=== PATIENT | male | born 1980 | race Caucasian/White ===

== ENCOUNTER 2017-03-20 17:08 | Emergency (ER) | payer SELFPAY ==
[2017-03-20] MEDS ORDERED: CYCL10TA PO (19:27)
[2017-03-20] MEDS ORDERED: IBUP-1022 PO (19:27)
== END 2017-03-20 19:42 | disposition home or self-care (01) ==
LOC: M ED 17:08
DX: S46.911A Strain of unspecified muscle, fascia and tendon at shoulder and upper arm level, right arm, initial encounter (principal); X58.XXXA Exposure to other specified factors, initial encounter; Y92.89 Other specified places as the place of occurrence of the external cause; Y93.89 Activity, other specified; Y99.8 Other external cause status; Z91.012 Allergy to eggs

== ENCOUNTER → 2017-07-31 | Outpatient (CLI) | payer SELFPAY | LOC: M OUTALCOH 08:01 | DX: F10.20 Alcohol dependence, uncomplicated (principal) ==

== ENCOUNTER 2017-08-07 10:10 | Outpatient (RCR) | payer SELFPAY | END 2017-08-09 | LOC: M OUTALCOH 10:10 | DX: F10.20 Alcohol dependence, uncomplicated (principal) ==

== ENCOUNTER 2017-08-15 16:00 | Outpatient (RCR) | payer SELFPAY | END 2017-09-09 | LOC: M OUTALCOH 08-22 16:00 | DX: F10.20 Alcohol dependence, uncomplicated (principal) ==

== ENCOUNTER 2017-09-12 16:00 | Outpatient (RCR) | payer SELFPAY | END 2017-10-09 | LOC: M OUTALCOH 09-19 10:45 | DX: F10.20 Alcohol dependence, uncomplicated (principal) ==

== ENCOUNTER 2017-10-11 09:02 | Outpatient (RCR) | payer SELFPAY | END 2017-11-09 | LOC: M OUTALCOH 10-18 15:00 | DX: F10.20 Alcohol dependence, uncomplicated (principal) ==

== ENCOUNTER 2017-11-15 15:17 | Outpatient (RCR) | payer SELFPAY | END 2017-12-09 | LOC: M OUTALCOH 11-28 16:00 | DX: F10.20 Alcohol dependence, uncomplicated (principal) ==

== ENCOUNTER 2017-12-11 14:48 | Outpatient (RCR) | payer SELFPAY | END 2018-01-09 | LOC: M OUTALCOH 01-01 16:00 | DX: F10.20 Alcohol dependence, uncomplicated (principal) ==

== ENCOUNTER 2018-02-19 08:54 | Outpatient (RCR) | payer SELFPAY | END 2018-03-11 | LOC: M OUTALCOH 08:54 | DX: F10.20 Alcohol dependence, uncomplicated (principal) ==

== ENCOUNTER → 2018-03-15 | Outpatient (REF) | payer BC | LOC: M SFHCLERA 09:44 | DX: R10.9 Unspecified abdominal pain (principal) ==

== ENCOUNTER → 2018-05-07 | Outpatient (CLI) | payer BC ==
[2018-05-07 12:44] LABS: HEMATOCRIT 24.1 % (42.0-52.0); MEAN CORPUSCULAR HEMOGLOBIN 15.6 pg (27.0-33.0); MEAN CORPUSCULAR HGB CONC 24.5 g/dl (32.0-36.5); MEAN CORPUSCULAR VOLUME 63.8 fl (80.0-96.0); PLATELET COUNT, AUTOMATED 357 10^3/uL (150-450); RED BLOOD COUNT 3.78 10^6/uL (4.30-6.10); RED CELL DISTRIBUTION WIDTH 22.5 % (11.5-14.5); WHITE BLOOD COUNT 5.3 10^3/uL (4.0-10.0)
[2018-05-07 13:00] LABS: HEMOGLOBIN 5.9 g/dl (13.5-17.5)
[2018-05-07 13:31] LABS: ALBUMIN 3.2 GM/DL (3.2-5.2); ALBUMIN/GLOBULIN RATIO 0.86 (1.00-1.93); ALKALINE PHOSPHATASE 81 U/L (45-117); ALT/SGPT 12 U/L (12-78); ANION GAP 7 MEQ/L (8-16); AST/SGOT 8 U/L (7-37); BILIRUBIN,TOTAL 0.3 MG/DL (0.2-1.0); BLOOD UREA NITROGEN 10 MG/DL (7-18); CARBON DIOXIDE LEVEL 25 MEQ/L (21-32); CHLORIDE LEVEL 107 MEQ/L (98-107); CHOLESTEROL LEVEL 84 MG/DL (<200); CREATININE FOR GFR 0.78 MG/DL (0.70-1.30); FERRITIN 2 NG/ML (26-388); GLOMERULAR FILTRATION RATE > 60.0 (>60); GLUCOSE, FASTING 81 MG/DL (70-100); HDL CHOLESTEROL 28 MG/DL (>40); IRON (FE) 14 UG/DL (65-175); LDL CHOLESTEROL 47 MG/DL (<100); NON-HDL-C 56 MG/DL; PERCENT SATURATION 3.6 % (19.7-50.0); POTASSIUM SERUM 4.7 MEQ/L (3.5-5.1); SODIUM LEVEL 139 MEQ/L (136-145); TOTAL IRON BINDING CAPACITY 392 UG/DL (250-450); TOTAL PROTEIN 6.9 GM/DL (6.4-8.2); TRIGLYCERIDES LEVEL 47 MG/DL (<150)
[2018-05-07 13:48] LABS: ERYTHROCYTE SEDIMENTATION RATE 64 mm/hr (0-15)
[2018-05-07 13:52] LABS: RETIC HEMOGLOBIN EQUIVALENT 14.7 pg (24-36); RETICULOCYTE # 111.2 10^9/L (17-77); RETICULOCYTE % 2.9 % (0.5-1.5)
[2018-05-09 00:50] LABS: ANTINUCLEAR ANTIBODIES DIRECT Negative (Negative); Lyme Disease IgG/IgM Antibodie <0.91 ISR (0.00-0.90); Lyme Disease IgM Ab Quantitati <0.80 index (0.00-0.79)
[2018-05-09 10:59] LABS: VITAMIN B12 LEVEL 363 PG/ML (247-911)
[2018-05-13 14:08] LABS: Methylmalonic Acid 129 nmol/L (0-378)
== END ==
LOC: M WUC 09:11
DX: Z00.00 Encounter for general adult medical examination without abnormal findings (principal); Z13.220 Encounter for screening for lipoid disorders; D64.9 Anemia, unspecified; M25.50 Pain in unspecified joint; M79.10 Myalgia, unspecified site
CPT/HCPCS: 82607

== ENCOUNTER → 2018-05-08 | Outpatient (REF) | payer BC ==
[2018-05-08 11:06] LABS: HEMATOCRIT 24.9 % (42.0-52.0); MEAN CORPUSCULAR HEMOGLOBIN 15.6 pg (27.0-33.0); MEAN CORPUSCULAR HGB CONC 24.5 g/dl (32.0-36.5); MEAN CORPUSCULAR VOLUME 63.5 fl (80.0-96.0); PLATELET COUNT, AUTOMATED 429 10^3/uL (150-450); RED BLOOD COUNT 3.92 10^6/uL (4.30-6.10); RED CELL DISTRIBUTION WIDTH 22.6 % (11.5-14.5); RETIC HEMOGLOBIN EQUIVALENT 14.9 pg (24-36); RETICULOCYTE # 91.7 10^9/L (17-77); RETICULOCYTE % 2.3 % (0.5-1.5); WHITE BLOOD COUNT 6.9 10^3/uL (4.0-10.0)
[2018-05-08 11:11] LABS: HEMOGLOBIN 6.1 g/dl (13.5-17.5); POSITIVE MORPH POS FLAG
[2018-05-08 11:31] LABS: ERYTHROCYTE SEDIMENTATION RATE 57 mm/hr (0-15)
[2018-05-08 11:35] LABS: ALBUMIN 3.4 GM/DL (3.2-5.2); ALBUMIN/GLOBULIN RATIO 0.76 (1.00-1.93); ALKALINE PHOSPHATASE 82 U/L (45-117); ALT/SGPT 14 U/L (12-78); ANION GAP 11 MEQ/L (8-16); AST/SGOT 7 U/L (7-37); BILIRUBIN,TOTAL 0.4 MG/DL (0.2-1.0); BLOOD UREA NITROGEN 11 MG/DL (7-18); CARBON DIOXIDE LEVEL 23 MEQ/L (21-32); CHLORIDE LEVEL 105 MEQ/L (98-107); CHOLESTEROL LEVEL 97 MG/DL (<200); CHOLESTEROL RISK RATIO 3.344 (<5); CREATININE FOR GFR 0.88 MG/DL (0.70-1.30); FERRITIN 2 NG/ML (26-388); GLOMERULAR FILTRATION RATE > 60.0 (>60); GLUCOSE, FASTING 86 MG/DL (70-100); HDL CHOLESTEROL 29 MG/DL (>40); IRON (FE) 16 UG/DL (65-175); LDL CHOLESTEROL 55 MG/DL (<100); NON-HDL-C 68 MG/DL; PERCENT SATURATION 3.7 % (19.7-50.0); POTASSIUM SERUM 4.4 MEQ/L (3.5-5.1); SODIUM LEVEL 139 MEQ/L (136-145); TOTAL IRON BINDING CAPACITY 433 UG/DL (250-450); TOTAL PROTEIN 7.9 GM/DL (6.4-8.2); TRIGLYCERIDES LEVEL 65 MG/DL (<150)
[2018-05-08 13:54] LABS: C REACTIVE PROTEIN QUANTITATIV 0.33 MG/DL (0.00-0.30)
[2018-05-10 00:30] LABS: ANTINUCLEAR ANTIBODIES DIRECT Negative (Negative)
== END ==
LOC: M SFHCPLAZ 07:57
DX: Z00.00 Encounter for general adult medical examination without abnormal findings (principal); M25.50 Pain in unspecified joint; M79.10 Myalgia, unspecified site; Z13.220 Encounter for screening for lipoid disorders
CPT/HCPCS: 83550

== ENCOUNTER → 2018-05-14 | Outpatient (CLI) | payer BC ==
[2018-05-14 13:15] LABS: IMMUNOGLOBULIN A 496 MG/DL (70-400)
[2018-05-16 00:06] LABS: TISSUE TRANSGLUTAMINASE IgA <2 U/mL (0-3)
== END ==
LOC: M LAB 11:55
DX: D50.9 Iron deficiency anemia, unspecified (principal)
CPT/HCPCS: 82784

== ENCOUNTER 2018-05-24 07:45 | Outpatient (CLI) | payer BC ==
[~2018-05-24] VITALS: Ht 175.3 cm; Wt 105.5 kg
[2018-05-24] VITALS (8 sets, daily range): BP systolic 116–142; BP diastolic 60–84
[~2018-05-24 07:45] MED LIST: CYCL10TA PO; IBUP-1022 PO
[2018-05-24] MEDS ORDERED: IRON SUCROSE 75 MG in NS 100 ML IV ONE (08:00)
[2018-05-24] MEDS ORDERED: IRON SUCROSE 25 MG in NS 50 ML IV ONE (08:00)
[2018-05-24] MEDS ORDERED: IRON SUPPLEMENT PO (08:23)
[2018-05-24] MEDS ORDERED: ACID REFLUX MED PO (08:23)
[2018-05-28] MEDS ORDERED: OMEP40CA2 PO (09:12)
== END 2018-05-24 11:30 | disposition home or self-care (01) ==
LOC: M INFU 07:45
PROVIDERS: ATTEND Nurse Practitioner Family
DX: D50.9 Iron deficiency anemia, unspecified (principal)
CPT/HCPCS: 96365; 96366; J1756

== ENCOUNTER → 2018-05-25 | Outpatient (CLI) | payer BC ==
[~2018-05-25] MED LIST changes: +ACID REFLUX MED PO; +GLUCAGON FOR INJ 1 MG VIAL (J1610) As Ordered ONE; +IRON SUPPLEMENT PO; +ISOVUE-370 76% 100ML VIAL (Q9967) As Ordered ONE; +OMEP40CA2 PO; +VoLumen 0.1% SUSPENSION 450ML BOTTLE As Ordered ONE
--- NOTE | 2018-05-25 10:54 | REP ---
CT ENTEROGRAPHY: WITH IV AND ORAL CONTRAST. HISTORY: Iron-deficiency anemia. COMPARISON STUDY: Comparison CT study October 24, 2015. CT ENTEROGRAPHY TECHNIQUE: The patient ingested oral Volumen for PO contrast per protocol. 0.6 mg of intravenous glucagon is administered. 100 mL of Isovue 370 is given intravenously for intravenous contrast. Helical scanning is acquired. Arterial phase and delayed phase imaging was acquired. Thick slab coronal and sagittal MIP images are generated. In addition coronal and sagittal multiplanar re-formation images are generated and reviewed along with axial images. CT ENTEROGRAPHY FINDINGS: There is a moderate-sized sliding type hiatal hernia again noted. The lung bases remain clear on axial CT images. Digital inspector plating radiograph shows an unremarkable bowel gas pattern. The liver is normal in size and homogeneous in texture. The spleen is homogeneous as well and borderline in size measuring 12.6 cm in greatest diameter, unchanged. No adrenal lesion is observed. No pancreatic abnormality is seen. There is a lipomatous polyp within the lumen of proximal jejunal loop measuring 1.0 x 1.0 x 1.7 cm. This is visible in retrospect on the 2015 study and is unchanged. No other small bowel abnormality is seen. The large bowel loops are unremarkable. No abnormal bowel enhancement or thickening is seen in the large or small intestine. There is some rectosigmoid and sigmoid colonic diverticulosis which is mild. There is no evidence of diverticulitis. No ascites is seen. No pelvic mass or adenopathy is observed. No bony destructive lesion is seen. Seminal vesicles, prostate, and urinary bladder are unremarkable. A normal appendix is visible. IMPRESSION: Polypoid lipoma in mid jejunum 17 mm in greatest diameter. Left colonic diverticulosis mild in degree without CT evidence of diverticulitis. Borderline size spleen. No change from October 30, 2015 prior study. Electronically Signed by Salo Pabon MD 05/30/2018 08:22 P
== END ==
LOC: M RAD 07:16
PROVIDERS: ATTEND Internal Medicine Gastroenterology
DX: D50.9 Iron deficiency anemia, unspecified (principal)
CPT/HCPCS: 74177; J1610; Q9967

== ENCOUNTER 2018-05-31 08:34 | Outpatient (CLI) | payer BC ==
[~2018-05-31] VITALS: Ht 175.3 cm; Wt 105.5 kg
[~2018-05-31 08:34] MED LIST changes: -GLUCAGON FOR INJ 1 MG VIAL (J1610) As Ordered ONE; -ISOVUE-370 76% 100ML VIAL (Q9967) As Ordered ONE; -VoLumen 0.1% SUSPENSION 450ML BOTTLE As Ordered ONE
[2018-05-31 08:35] VITALS: BP 149/88
[2018-05-31] MEDS ORDERED: IRON SUCROSE 200 MG in NS 200 ML IV ONE (09:00)
[2018-05-31 09:45] VITALS: BP 125/79
[2018-05-31 10:45] VITALS: BP 132/78
[2018-05-31 11:25] VITALS: BP 127/76
[2018-05-31 11:45] VITALS: BP 135/81
== END 2018-05-31 11:45 | disposition home or self-care (01) ==
LOC: M INFU 08:34
PROVIDERS: ATTEND Nurse Practitioner Family
DX: D50.9 Iron deficiency anemia, unspecified (principal)
CPT/HCPCS: 96365; 96366; J1756

== ENCOUNTER 2018-06-07 09:10 | Outpatient (CLI) | payer BC ==
[~2018-06-07] VITALS: Ht 175.3 cm; Wt 105.5 kg
[2018-06-07 09:15] VITALS: BP 140/85
[2018-06-07] MEDS ORDERED: IRON SUCROSE 200 MG in NS 100 ML OVER 1 HR IV ONE (10:00)
[2018-06-07 10:15] VITALS: BP 151/92
[2018-06-07 10:59] VITALS: BP 154/85
[2018-06-07 12:15] VITALS: BP 123/63
== END 2018-06-07 11:15 | disposition home or self-care (01) ==
LOC: M INFU 09:10
PROVIDERS: ATTEND Nurse Practitioner Family
DX: D50.9 Iron deficiency anemia, unspecified (principal)
CPT/HCPCS: 96365; 96366; J1756

== ENCOUNTER → 2018-07-19 | Outpatient (REF) | payer BC ==
[2018-07-19 15:53] LABS: HEMATOCRIT 40.7 % (42.0-52.0); HEMOGLOBIN 12.7 g/dl (13.5-17.5); MEAN CORPUSCULAR HEMOGLOBIN 25.2 pg (27.0-33.0); MEAN CORPUSCULAR HGB CONC 31.2 g/dl (32.0-36.5); MEAN CORPUSCULAR VOLUME 80.8 fl (80.0-96.0); PLATELET COUNT, AUTOMATED 282 10^3/uL (150-450); RED BLOOD COUNT 5.04 10^6/uL (4.30-6.10); WHITE BLOOD COUNT 6.4 10^3/uL (4.0-10.0)
[2018-07-19 16:22] LABS: PERCENT SATURATION 11.4 % (19.7-50.0)
== END ==
LOC: M SFHCPLAZ 14:46
PROVIDERS: ATTEND Nurse Practitioner Family
DX: D50.9 Iron deficiency anemia, unspecified (principal)

== ENCOUNTER → 2018-07-20 | Outpatient (CLI) | payer BC ==
--- NOTE | 2018-07-20 15:28 | REP ---
ABDOMEN FLAT PLATE: 07/20/2018. Comparison: CT enterography 05/25/2018. Clinical history: Agile patency pill, has capsule traversed small bowel. Evaluate for foreign body. Finding: Two views to encompass the entirety of the abdomen pelvis are reviewed. There is no radiopaque foreign body. The Agile capsule has passed. There are no dilated loops. Small bowel gas pattern normal. No abnormal colonic dilatation. There are pelvic phleboliths noted. Bones intact. Impression: 1. No radiopaque foreign body visible in the abdomen or pelvis. Electronically Signed by Eddy Pelaez MD 07/20/2018 05:53 P
== END ==
LOC: M RAD 13:19
PROVIDERS: ATTEND Internal Medicine Gastroenterology
DX: T18.3XXA Foreign body in small intestine, initial encounter (principal); T18.4XXA Foreign body in colon, initial encounter; Y92.89 Other specified places as the place of occurrence of the external cause

== ENCOUNTER → 2018-09-04 | Outpatient (CLI) | payer BC | LOC: M OUTALCOH 08:09 | PROVIDERS: ATTEND Psychiatry & Neurology Psychiatry | DX: Z03.89 Encounter for observation for other suspected diseases and conditions ruled out (principal) ==

== ENCOUNTER 2018-09-11 14:00 | Outpatient (RCR) | payer BC | END 2018-10-09 | LOC: M OUTALCOH 14:00 | PROVIDERS: ATTEND Psychiatry & Neurology Psychiatry | DX: F10.20 Alcohol dependence, uncomplicated (principal) ==

== ENCOUNTER → 2018-11-26 | Outpatient (CLI) | payer BC ==
[2018-11-26 13:31] LABS: HEMATOCRIT 42.8 % (42.0-52.0); HEMOGLOBIN 13.9 g/dl (13.5-17.5); MEAN CORPUSCULAR HEMOGLOBIN 29.5 pg (27.0-33.0); MEAN CORPUSCULAR HGB CONC 32.5 g/dl (32.0-36.5); MEAN CORPUSCULAR VOLUME 90.9 fl (80.0-96.0); PLATELET COUNT, AUTOMATED 219 10^3/uL (150-450); RED BLOOD COUNT 4.71 10^6/uL (4.30-6.10); WHITE BLOOD COUNT 5.3 10^3/uL (4.0-10.0)
[2018-11-26 13:32] LABS: ALBUMIN 3.6 GM/DL (3.2-5.2); ALT/SGPT 27 U/L (12-78); BILIRUBIN,TOTAL 0.5 MG/DL (0.2-1.0); BLOOD UREA NITROGEN 13 MG/DL (7-18); CALCIUM LEVEL 8.9 MG/DL (8.5-10.1); CARBON DIOXIDE LEVEL 27 MEQ/L (21-32); CHLORIDE LEVEL 108 MEQ/L (98-107); CREATININE FOR GFR 0.96 MG/DL (0.70-1.30); GLOMERULAR FILTRATION RATE > 60.0 (>60); GLUCOSE, FASTING 97 MG/DL (70-100); IRON (FE) 75 UG/DL (65-175); PERCENT SATURATION 22.3 % (19.7-50.0); POTASSIUM SERUM 4.3 MEQ/L (3.5-5.1); SODIUM LEVEL 140 MEQ/L (136-145); TOTAL IRON BINDING CAPACITY 336 UG/DL (250-450); TOTAL PROTEIN 7.9 GM/DL (6.4-8.2)
[2018-11-26 14:24] LABS: MALB URINE SIEMENS 14.3 MG/L
== END ==
LOC: M WUC 09:43
PROVIDERS: ATTEND Nurse Practitioner Family
DX: D50.9 Iron deficiency anemia, unspecified (principal); I10 Essential (primary) hypertension; Z68.34 Body mass index [BMI] 34.0-34.9, adult

== ENCOUNTER → 2019-02-25 | Outpatient (CLI) | payer BC ==
[~2019-02-25] MED LIST changes: -OMEP40CA2 PO; +OMEP40CA97 PO
[2019-02-25 14:01] LABS: HEMATOCRIT 43.3 % (42.0-52.0); MEAN CORPUSCULAR HEMOGLOBIN 29.7 pg (27.0-33.0); MEAN CORPUSCULAR HGB CONC 32.3 g/dl (32.0-36.5); MEAN CORPUSCULAR VOLUME 91.9 fl (80.0-96.0); PLATELET COUNT, AUTOMATED 229 10^3/uL (150-450); RED BLOOD COUNT 4.71 10^6/uL (4.30-6.10); WHITE BLOOD COUNT 6.7 10^3/uL (4.0-10.0)
[2019-02-25 14:33] LABS: ALBUMIN 3.5 GM/DL (3.2-5.2); ALT/SGPT 30 U/L (12-78); BILIRUBIN,TOTAL 0.7 MG/DL (0.2-1.0); BLOOD UREA NITROGEN 19 MG/DL (7-18); CARBON DIOXIDE LEVEL 27 MEQ/L (21-32); CHLORIDE LEVEL 107 MEQ/L (98-107); CREATININE FOR GFR 0.82 MG/DL (0.70-1.30); GLOMERULAR FILTRATION RATE > 60.0 (>60); GLUCOSE, FASTING 74 MG/DL (70-100); IRON (FE) 44 UG/DL (65-175); PERCENT SATURATION 13.3 % (19.7-50.0); POTASSIUM SERUM 4.5 MEQ/L (3.5-5.1); SODIUM LEVEL 141 MEQ/L (136-145); TOTAL IRON BINDING CAPACITY 331 UG/DL (250-450); TOTAL PROTEIN 7.3 GM/DL (6.4-8.2)
== END ==
LOC: M WUC 10:47
PROVIDERS: ATTEND Nurse Practitioner Family
DX: D50.9 Iron deficiency anemia, unspecified (principal); I10 Essential (primary) hypertension

== ENCOUNTER → 2019-07-10 | Outpatient (REF) | payer OTHER ==
[2019-07-10 12:06] LABS: HEMATOCRIT 44.6 % (42.0-52.0); HEMOGLOBIN 14.5 g/dl (13.5-17.5); MEAN CORPUSCULAR HEMOGLOBIN 29.7 pg (27.0-33.0); MEAN CORPUSCULAR HGB CONC 32.5 g/dl (32.0-36.5); MEAN CORPUSCULAR VOLUME 91.4 fl (80.0-96.0); PLATELET COUNT, AUTOMATED 246 10^3/uL (150-450); RED BLOOD COUNT 4.88 10^6/uL (4.30-6.10); WHITE BLOOD COUNT 6.9 10^3/uL (4.0-10.0)
[2019-07-10 12:19] LABS: ALBUMIN 3.7 GM/DL (3.2-5.2); ALT/SGPT 48 U/L (12-78); BILIRUBIN,TOTAL 0.5 MG/DL (0.2-1.0); BLOOD UREA NITROGEN 12 MG/DL (7-18); CALCIUM LEVEL 8.8 MG/DL (8.5-10.1); CARBON DIOXIDE LEVEL 28 MEQ/L (21-32); CHLORIDE LEVEL 106 MEQ/L (98-107); CHOLESTEROL LEVEL 123 MG/DL (<200); CHOLESTEROL RISK RATIO 4.241 (<5); CREATININE FOR GFR 0.88 MG/DL (0.70-1.30); FERRITIN 22 NG/ML (26-388); FREE T4 1.14 NG/DL (0.76-1.46); GLOMERULAR FILTRATION RATE > 60.0 (>60); GLUCOSE, FASTING 87 MG/DL (70-100); HDL CHOLESTEROL 29 MG/DL (>40); LDL CHOLESTEROL 80 MG/DL (<100); NON-HDL-C 94 MG/DL; POTASSIUM SERUM 4.3 MEQ/L (3.5-5.1); SODIUM LEVEL 137 MEQ/L (136-145); TOTAL PROTEIN 7.8 GM/DL (6.4-8.2); TRIGLYCERIDES LEVEL 69 MG/DL (<150)
[2019-07-10 12:21] LABS: TOTAL 25(OH) VITAMIN D 10.2 NG/ML (30.0-100.0)
[2019-07-10 12:57] LABS: MALB URINE SIEMENS 13.9 MG/L; MAU/CREAT RATIO 5.7 MCG/MG (0.0-30.0)
== END ==
LOC: M SFHCPLAZ 08:55
PROVIDERS: ATTEND Nurse Practitioner Family
DX: D50.9 Iron deficiency anemia, unspecified (principal); I10 Essential (primary) hypertension; E66.01 Morbid (severe) obesity due to excess calories

== ENCOUNTER → 2019-08-27 | Outpatient (REF) | payer OTHER ==
[2019-08-27 15:17] LABS: BLOOD UREA NITROGEN 15 MG/DL (7-18); CALCIUM LEVEL 9.2 MG/DL (8.5-10.1); CARBON DIOXIDE LEVEL 30 MEQ/L (21-32); CHLORIDE LEVEL 103 MEQ/L (98-107); CREATININE FOR GFR 0.96 MG/DL (0.70-1.30); GLOMERULAR FILTRATION RATE > 60.0 (>60); GLUCOSE, FASTING 76 MG/DL (70-100); POTASSIUM SERUM 4.2 MEQ/L (3.5-5.1); SODIUM LEVEL 136 MEQ/L (136-145)
== END ==
LOC: M SFHCPLAZ 13:32
PROVIDERS: ATTEND Nurse Practitioner Family
DX: I10 Essential (primary) hypertension (principal)

== ENCOUNTER → 2019-12-04 | Outpatient (CLI) | payer OTHER ==
[~2019-12-04] MED LIST changes: +CHLO125TA; +CYCL-707 PO; -CYCL10TA PO; +LISI-538; +VITA50005
[2019-12-04 15:25] LABS: BLOOD UREA NITROGEN 14 MG/DL (7-18); CALCIUM LEVEL 9.7 MG/DL (8.5-10.1); CARBON DIOXIDE LEVEL 30 MEQ/L (21-32); CHLORIDE LEVEL 104 MEQ/L (98-107); CREATININE FOR GFR 0.91 MG/DL (0.70-1.30); GLOMERULAR FILTRATION RATE > 60.0 (>60); GLUCOSE, FASTING 96 MG/DL (70-100); POTASSIUM SERUM 4.5 MEQ/L (3.5-5.1); SODIUM LEVEL 137 MEQ/L (136-145)
[2019-12-04 15:33] LABS: TOTAL 25(OH) VITAMIN D 44.6 NG/ML (30.0-100.0)
== END ==
LOC: M PLALAB 09:27
PROVIDERS: ATTEND Nurse Practitioner Family
DX: I10 Essential (primary) hypertension (principal); E55.9 Vitamin D deficiency, unspecified

== ENCOUNTER 2019-12-16 21:40 | Emergency (ER) | payer OTHER ==
[~2019-12-16] VITALS: Ht 172.7 cm; Wt 122.1 kg
[~2019-12-16 21:40] MED LIST changes: -CHLO125TA; -LISI-538; -VITA50005
[2019-12-16 21:41] VITALS: BP 132/87
[2019-12-16] MEDS ORDERED: VITA50005 (23:06)
[2019-12-16] MEDS ORDERED: LISI-538 (23:06)
[2019-12-16] MEDS ORDERED: CHLO125TA (23:06)
[2019-12-17 01:04] LABS: CHLAMYDIA DNA AMPLIFICATION NEGATIVE (NEGATIVE); GC DNA AMPLIFICATION NEGATIVE (NEGATIVE)
== END 2019-12-17 01:19 | disposition left against medical advice (07) ==
LOC: M ED 21:40
DX: Z53.21 Procedure and treatment not carried out due to patient leaving prior to being seen by health care provider (principal)

== ENCOUNTER → 2020-04-06 | Outpatient (CLI) | payer OTHER ==
[~2020-04-06] MED LIST changes: +CHLO125TA; +LISI-538; +VITA50005
[2020-04-06 13:22] LABS: ALBUMIN 3.5 GM/DL (3.2-5.2); ALT/SGPT 41 U/L (12-78); BILIRUBIN,TOTAL 0.6 MG/DL (0.2-1.0); BLOOD UREA NITROGEN 12 MG/DL (7-18); CARBON DIOXIDE LEVEL 28 MEQ/L (21-32); CHLORIDE LEVEL 104 MEQ/L (98-107); CHOLESTEROL LEVEL 119 MG/DL (<200); CHOLESTEROL RISK RATIO 3.966 (<5); CREATININE FOR GFR 0.93 MG/DL (0.70-1.30); GLOMERULAR FILTRATION RATE > 60.0 (>60); GLUCOSE, FASTING 101 MG/DL (70-100); HDL CHOLESTEROL 30 MG/DL (>40); LDL CHOLESTEROL 65 MG/DL (<100); NON-HDL-C 89 MG/DL; POTASSIUM SERUM 4.2 MEQ/L (3.5-5.1); SODIUM LEVEL 138 MEQ/L (136-145); TOTAL PROTEIN 7.5 GM/DL (6.4-8.2); TRIGLYCERIDES LEVEL 121 MG/DL (<150)
[2020-04-06 13:29] LABS: TOTAL 25(OH) VITAMIN D 34.3 NG/ML (30.0-100.0)
[2020-04-06 13:30] LABS: MALB URINE SIEMENS 11.2 MG/L; MAU/CREAT RATIO 4.4 MCG/MG (0.0-30.0)
== END ==
LOC: M WUC 08:36
PROVIDERS: ATTEND Nurse Practitioner Family
DX: E55.9 Vitamin D deficiency, unspecified (principal); I10 Essential (primary) hypertension

== ENCOUNTER → 2021-08-23 | Outpatient (CLI) | payer BC ==
[~2021-08-23] MED LIST changes: +ERGO500029; -LISI-538; +LISI20TA33; +OMEP40CA4 PO; -OMEP40CA97 PO; -VITA50005
[2021-08-23 13:51] LABS: MALB URINE SIEMENS 10.7 MG/L
[2021-08-23 14:10] LABS: ALBUMIN 3.5 GM/DL (3.2-5.2); ALT/SGPT 17 U/L (12-78); BILIRUBIN,TOTAL 0.5 MG/DL (0.2-1.0); BLOOD UREA NITROGEN 10 MG/DL (7-18); C REACTIVE PROTEIN QUANTITATIV 0.78 MG/DL (0.00-0.30); CALCIUM LEVEL 8.8 MG/DL (8.5-10.1); CARBON DIOXIDE LEVEL 28 MEQ/L (21-32); CHLORIDE LEVEL 106 MEQ/L (98-107); CHOLESTEROL LEVEL 93 MG/DL (<200); CHOLESTEROL RISK RATIO 2.906 (<5); CREATININE FOR GFR 0.81 MG/DL (0.70-1.30); FERRITIN 4 NG/ML (26-388); GLOMERULAR FILTRATION RATE > 60.0 (>60); GLUCOSE, FASTING 90 MG/DL (70-100); HDL CHOLESTEROL 32 MG/DL (>40); LDL CHOLESTEROL 47 MG/DL (<100); NON-HDL-C 61 MG/DL; POTASSIUM SERUM 4.4 MEQ/L (3.5-5.1); SODIUM LEVEL 139 MEQ/L (136-145); TOTAL 25(OH) VITAMIN D 23.9 NG/ML (30.0-100.0); TOTAL PROTEIN 7.6 GM/DL (6.4-8.2); TRIGLYCERIDES LEVEL 69 MG/DL (<150)
== END ==
LOC: M PLALAB 10:25
PROVIDERS: ATTEND Internal Medicine Hematology
DX: I10 Essential (primary) hypertension (principal)

== ENCOUNTER 2021-09-27 11:49 | Outpatient (CLI) | payer BC ==
[~2021-09-27] VITALS: Ht 175.3 cm; Wt 100.2 kg
[~2021-09-27 11:49] MED LIST changes: +ALBUTEROL SULFATE 2.5 MG/0.5 ML INH NEB SOLN INH PRN; +EPINEPHrine INJ 1 MG/ML 1ML AMP IM PRN; +FERRIC CARBOXYMALTOSE INJ 750 MG, VIAL MATE ADAPTER 1 EACH in NS 250 ML IV ONE; +NS 1,000 ML IV SCH; +diphenhydrAMINE 50MG/ML VIAL (J1200) IV PRN; +methylPREDNISolone 125MG 2ML VIAL IV PRN
[2021-09-27] MEDS ORDERED: FERRIC CARBOXYMALTOSE INJ 750 MG, VIAL MATE ADAPTER 1 EACH in NS 250 ML IV ONE (12:00)
[2021-09-27] MEDS ORDERED: NS 1,000 ML IV SCH (12:00)
[2021-09-27 12:16] VITALS: BP 143/90
[2021-09-27 13:30] VITALS: BP 150/94
== END 2021-09-27 13:30 | disposition home or self-care (01) ==
LOC: M INFU 11:49
PROVIDERS: ATTEND Internal Medicine Hematology
DX: D50.9 Iron deficiency anemia, unspecified (principal)
CPT/HCPCS: 96365; J1439

== ENCOUNTER 2021-12-23 23:05 | Emergency (ER) | payer BC, OTHER ==
[~2021-12-23] VITALS: Ht 175.3 cm; Wt 100.0 kg
[~2021-12-23 23:05] MED LIST changes: -ALBUTEROL SULFATE 2.5 MG/0.5 ML INH NEB SOLN INH PRN; -EPINEPHrine INJ 1 MG/ML 1ML AMP IM PRN; -FERRIC CARBOXYMALTOSE INJ 750 MG, VIAL MATE ADAPTER 1 EACH in NS 250 ML IV ONE; -NS 1,000 ML IV SCH; -diphenhydrAMINE 50MG/ML VIAL (J1200) IV PRN; -methylPREDNISolone 125MG 2ML VIAL IV PRN
[2021-12-24 00:20] LABS: HEMATOCRIT 42.1 % (42.0-52.0); MEAN CORPUSCULAR HEMOGLOBIN 28.3 pg (27.0-33.0); MEAN CORPUSCULAR HGB CONC 33.3 g/dl (32.0-36.5); MEAN CORPUSCULAR VOLUME 85.1 fl (80.0-96.0); PLATELET COUNT, AUTOMATED 245 10^3/uL (150-450); RED BLOOD COUNT 4.95 10^6/uL (4.30-6.10); WHITE BLOOD COUNT 5.1 10^3/uL (4.0-10.0)
[2021-12-24 00:31] LABS: ACETAMINOPHEN LEVEL < 2.0 UG/ML (10.0-30.0); ALBUMIN 3.4 GM/DL (3.2-5.2); ALT/SGPT 23 U/L (12-78); BILIRUBIN,DIRECT 0.3 MG/DL (0.0-0.2); BILIRUBIN,TOTAL 0.6 MG/DL (0.2-1.0); BLOOD UREA NITROGEN 6 MG/DL (7-18); CALCIUM LEVEL 8.5 MG/DL (8.5-10.1); CARBON DIOXIDE LEVEL 25 MEQ/L (21-32); CHLORIDE LEVEL 107 MEQ/L (98-107); CREATININE FOR GFR 0.75 MG/DL (0.70-1.30); ETHYL ALCOHOL (ETHANOL) 0.171 % (0.000-0.010); GLOMERULAR FILTRATION RATE > 60.0 (>60); GLUCOSE, FASTING 113 MG/DL (70-100); POTASSIUM SERUM 3.5 MEQ/L (3.5-5.1); RSV AMPLIFICATION NEGATIVE (NEGATIVE); SALICYLATE LEVEL < 1.7 MG/DL (5.0-30.0); SODIUM LEVEL 140 MEQ/L (136-145); TOTAL PROTEIN 7.7 GM/DL (6.4-8.2)
[2021-12-24 00:33] LABS: AMPHETAMINES LEVEL URINE NEGATIVE (NEGATIVE); BARBITURATES URINE NEGATIVE (NEGATIVE); BENZODIAZEPINES URINE NEGATIVE (NEGATIVE); CANNABINOIDS URINE NEGATIVE (NEGATIVE); COCAINE METABOLITE URINE NEGATIVE (NEGATIVE); METHADONE URINE NEGATIVE (NEGATIVE); PHENCYCLIDINE URINE NEGATIVE (NEGATIVE)
[2021-12-24 01:53] VITALS: BP 144/82
[2021-12-24 04:34] LABS: OPIATES URINE NEGATIVE (NEGATIVE)
== END 2021-12-24 01:54 | disposition home or self-care (01) ==
LOC: M ED 23:05
DX: F43.20 Adjustment disorder, unspecified (principal); F10.229 Alcohol dependence with intoxication, unspecified; U07.1 COVID-19; I10 Essential (primary) hypertension; I50.30 Unspecified diastolic (congestive) heart failure; K21.9 Gastro-esophageal reflux disease without esophagitis; Z79.899 Other long term (current) drug therapy; Z91.012 Allergy to eggs

== ENCOUNTER 2022-11-12 05:49 | Emergency (ER) | payer OTHER ==
[~2022-11-12] VITALS: Ht 170.2 cm; Wt 107.9 kg
[2022-11-12 08:23] VITALS: BP 176/112
== END 2022-11-12 08:31 | disposition home or self-care (01) ==
LOC: M ED 05:49
DX: M25.572 Pain in left ankle and joints of left foot (principal); I10 Essential (primary) hypertension; Z91.012 Allergy to eggs; Z79.899 Other long term (current) drug therapy

== ENCOUNTER → 2023-04-04 | Outpatient (CLI) | payer BC ==
[2023-04-04 14:09] LABS: HEMATOCRIT 40.8 % (42.0-52.0); HEMOGLOBIN 12.7 g/dl (13.5-17.5); MEAN CORPUSCULAR HEMOGLOBIN 26.8 pg (27.0-33.0); MEAN CORPUSCULAR HGB CONC 31.1 g/dl (32.0-36.5); MEAN CORPUSCULAR VOLUME 86.1 fl (80.0-96.0); PLATELET COUNT, AUTOMATED 269 10^3/uL (150-450); RED BLOOD COUNT 4.74 10^6/uL (4.30-6.10)
[2023-04-04 14:30] LABS: HEMOGLOBIN A1c 4.5 % (4.0-6.0)
[2023-04-04 14:35] LABS: CREATININE, URINE 191.7 MG/DL; MAU/CREAT RATIO 3.6 MCG/MG (0.0-30.0)
[2023-04-04 14:36] LABS: ALBUMIN 3.5 G/DL (3.2-5.2); ALKALINE PHOSPHATASE 100 U/L (46-116); ALT/SGPT 15 U/L (7.0-40); AST/SGOT 16 U/L (<34); BILIRUBIN,TOTAL 0.6 MG/DL (0.3-1.2); BLOOD UREA NITROGEN 15 MG/DL (9-23); CALCIUM LEVEL 8.4 MG/DL (8.5-10.1); CARBON DIOXIDE LEVEL 29 MMOL/L (20-31); CHLORIDE LEVEL 102 MMOL/L (98-107); CREATININE FOR GFR 0.88 MG/DL (0.70-1.30); GLOMERULAR FILTRATION RATE > 60.0 (>60); GLUCOSE, FASTING 69 MG/DL (60-100); POTASSIUM SERUM 4.2 MMOL/L (3.5-5.1); SODIUM LEVEL 139 MMOL/L (136-145); TOTAL PROTEIN 7.3 G/DL (5.7-8.2)
[2023-04-04 14:38] LABS: FERRITIN 13.3 NG/ML (10.5-307.3); THYROID STIMULATING HORMONE 1.568 uIU/ML (0.55-4.78); TOTAL 25(OH) VITAMIN D 29.4 NG/ML (20.0-100.0)
[2023-04-04 14:39] LABS: VITAMIN B12 LEVEL 573 PG/ML (211-911)
== END ==
LOC: M PLALAB 09:47
PROVIDERS: ATTEND Internal Medicine Hematology
DX: D50.9 Iron deficiency anemia, unspecified (principal)

== ENCOUNTER 2024-05-25 15:43 | Emergency (ER) | payer BC ==
[~2024-05-25] VITALS: Ht 175.3 cm; Wt 99.5 kg
[~2024-05-25 15:43] MED LIST changes: -ERGO500029; +ERGO500029 PO; -LISI20TA33; +LISI20TA33 PO
[2024-05-25] MEDS: KETOROLAC 30 MG/ML 1ML VIAL IV ONE (16:23)
[2024-05-25 16:30] LABS: BASO % 0.3 % (0.0-1.0); EOS # 0.3 10^3/uL (0.0-0.5); EOS % 4.2 % (0.0-3.0); HEMATOCRIT 41.5 % (42.0-52.0); LYMPH # 0.9 10^3/uL (1.5-5.0); MEAN CORPUSCULAR HEMOGLOBIN 25.7 pg (27.0-33.0); MEAN CORPUSCULAR HGB CONC 31.3 g/dl (32.0-36.5); MEAN CORPUSCULAR VOLUME 82.2 fl (80.0-96.0); MONO # 0.7 10^3/uL (0.0-0.8); MONO % 10.9 % (2.0-8.0); NEUTROPHILS # 4.1 10^3/uL (1.5-8.5); NEUTROPHILS % 69.1 % (36.0-66.0); PLATELET COUNT, AUTOMATED 284 10^3/uL (150-450); RED BLOOD COUNT 5.05 10^6/uL (4.30-6.10); WHITE BLOOD COUNT 5.9 10^3/uL (4.0-10.0)
[2024-05-25 16:53] LABS: CK-MB VALUE MASS < 1.0 NG/ML (<3.6); LIPASE 32 U/L (12-53)
[2024-05-25 16:55] LABS: ALBUMIN 3.3 G/DL (3.2-5.2); ALKALINE PHOSPHATASE 97 U/L (40-129); ALT/SGPT 11 U/L (7.0-40); AST/SGOT 23 U/L (<34); BILIRUBIN,DIRECT 0.3 MG/DL (<0.4); BILIRUBIN,TOTAL 0.8 MG/DL (0.3-1.2); BLOOD UREA NITROGEN 11 MG/DL (9-23); CALCIUM LEVEL 9.2 MG/DL (8.5-10.1); CARBON DIOXIDE LEVEL 26 MMOL/L (20-31); CHLORIDE LEVEL 104 MMOL/L (98-107); CREATININE FOR GFR 1.04 MG/DL (0.70-1.30); GLOMERULAR FILTRATION RATE > 60.0 (>60); GLUCOSE, FASTING 192 MG/DL (60-100); POTASSIUM SERUM 4.1 MMOL/L (3.5-5.1); SODIUM LEVEL 139 MMOL/L (136-145); TOTAL PROTEIN 7.5 G/DL (5.7-8.2)
[2024-05-25 17:04] LABS: CPK CREATINE PHOSPHOKINASE 63 U/L (46-171); MB/CK RELATIVE INDEX 1.58 (< OR =4)
[2024-05-25 18:01] LABS: CK-MB VALUE MASS < 1.0 NG/ML (<3.6)
[2024-05-25 18:03] LABS: CPK CREATINE PHOSPHOKINASE 53 U/L (46-171); MB/CK RELATIVE INDEX 1.88 (< OR =4)
[2024-05-25] MEDS ORDERED: ISOVUE-370 76% 100ML VIAL As Ordered ONE (18:15)
[2024-05-25] MEDS: ACETAMINOPHEN 500 MG TAB PO ONE (18:52)
[2024-05-25 19:15] VITALS: TEMP 99; O2SAT 96
[2024-05-25 20:15] VITALS: BP 168/114
[2024-05-25] MEDS ORDERED: IRON1TAB2 PO (20:47)
[2024-05-25] MEDS ORDERED: HOME MED LIST COMPLETE! XX SCH (20:50)
[2024-05-25] MEDS ORDERED: CHLO125TA PO (20:58)
[2024-05-25] MEDS ORDERED: NAPR-837 PO (20:59)
[2024-05-25] MEDS: CHLORTHALIDONE 25 MG TAB PO ONE (21:10)
== END 2024-05-25 21:14 | disposition home or self-care (01) ==
LOC: M ED 15:43
DX: R07.89 Other chest pain (principal); I10 Essential (primary) hypertension; R00.0 Tachycardia, unspecified; D50.9 Iron deficiency anemia, unspecified; Z91.012 Allergy to eggs; Z79.899 Other long term (current) drug therapy
CPT/HCPCS: 71045; 71275; 80048; 80076; 82550; 82553; 83690; 84484; 85025; 93005; 93041; 94760; 96374; 99285; J1885; Q9967

== ENCOUNTER → 2024-08-08 | Outpatient (CLI) | payer BC ==
[~2024-08-08] MED LIST changes: +CHLO125TA PO; +IRON1TAB2 PO; +NAPR-837 PO
== END ==
LOC: M OUTALCOH 10:58
PROVIDERS: ATTEND Psychiatry & Neurology Psychiatry
DX: F10.10 Alcohol abuse, uncomplicated (principal)

== ENCOUNTER 2024-08-19 22:12 | Emergency (ER) | payer BC, SELFPAY ==
[~2024-08-19] VITALS: Ht 170.2 cm; Wt 103.6 kg
[2024-08-19] MEDS: CHLORTHALIDONE 25 MG TAB PO ONE (23:20)
[2024-08-19 23:21] VITALS: BP 190/118
[2024-08-19 23:34] LABS: ALBUMIN 3.8 G/DL (3.2-5.2); ALKALINE PHOSPHATASE 109 U/L (40-129); ALT/SGPT 13 U/L (7.0-40); AST/SGOT 22 U/L (<34); BILIRUBIN,DIRECT 0.2 MG/DL (<0.4); BILIRUBIN,TOTAL 0.6 MG/DL (0.3-1.2); BLOOD UREA NITROGEN 8 MG/DL (9-23); CALCIUM LEVEL 8.6 MG/DL (8.5-10.1); CARBON DIOXIDE LEVEL 17 MMOL/L (20-31); CHLORIDE LEVEL 107 MMOL/L (98-107); CREATININE FOR GFR 0.74 MG/DL (0.70-1.30); GLOMERULAR FILTRATION RATE > 60.0 (>60); GLUCOSE, FASTING 83 MG/DL (60-100); POTASSIUM SERUM 4.3 MMOL/L (3.5-5.1); SALICYLATE LEVEL < 3.0 MG/DL (<30); SODIUM LEVEL 137 MMOL/L (136-145); TOTAL PROTEIN 8.2 G/DL (5.7-8.2)
[2024-08-19 23:37] LABS: THYROID STIMULATING HORMONE 1.981 uIU/ML (0.55-4.78)
[2024-08-19 23:43] LABS: ETHYL ALCOHOL (ETHANOL) 0.292 % (0.000-0.010)
[2024-08-19 23:55] LABS: AMPHETAMINES LEVEL URINE NEGATIVE (NEGATIVE); BARBITURATES URINE NEGATIVE (NEGATIVE); BENZODIAZEPINES URINE NEGATIVE (NEGATIVE); COCAINE METABOLITE URINE NEGATIVE (NEGATIVE); METHADONE URINE NEGATIVE (NEGATIVE); OPIATES URINE NEGATIVE (NEGATIVE)
[2024-08-19 23:56] LABS: CANNABINOIDS URINE NEGATIVE (NEGATIVE); PHENCYCLIDINE URINE NEGATIVE (NEGATIVE)
[2024-08-20 00:09] LABS: HEMOGLOBIN 13.6 g/dl (13.5-17.5); MEAN CORPUSCULAR HEMOGLOBIN 27.4 pg (27.0-33.0); MEAN CORPUSCULAR HGB CONC 32.4 g/dl (32.0-36.5); MEAN CORPUSCULAR VOLUME 84.5 fl (80.0-96.0); PLATELET COUNT, AUTOMATED 271 10^3/uL (150-450); RED BLOOD COUNT 4.97 10^6/uL (4.30-6.10); WHITE BLOOD COUNT 8.1 10^3/uL (4.0-10.0)
[2024-08-20] MEDS: ACETAMINOPHEN 325 MG TAB PO ONE (00:57)
[2024-08-20 08:42] VITALS: BP 152/90; TEMP 98; O2SAT 98
== END 2024-08-20 09:57 | disposition home or self-care (01) ==
LOC: M ED 22:12
DX: F10.14 Alcohol abuse with alcohol-induced mood disorder (principal); I10 Essential (primary) hypertension; E55.9 Vitamin D deficiency, unspecified; Z91.012 Allergy to eggs; Z79.899 Other long term (current) drug therapy

== ENCOUNTER 2024-09-05 13:54 | Outpatient (RCR) | payer BC, MEDICAID, SELFPAY | END 2024-09-09 | LOC: M OUTALCOH 13:54 | PROVIDERS: ATTEND Psychiatry & Neurology Psychiatry | DX: F10.10 Alcohol abuse, uncomplicated (principal) ==

== ENCOUNTER 2024-10-08 16:00 | Outpatient (RCR) | payer BC | END 2024-10-09 | LOC: M OUTALCOH 16:00 | PROVIDERS: ATTEND Psychiatry & Neurology Psychiatry | DX: F10.10 Alcohol abuse, uncomplicated (principal) ==

== ENCOUNTER 2025-04-01 14:25 | Observation (INO) | payer SELFPAY ==
[~2025-04-01] VITALS: Ht 170.2 cm; Wt 111.7 kg
[~2025-04-01 14:25] MED LIST changes: -IBUP-1022 PO; +IBUP600T42 PO
[2025-04-01 15:07] LABS: BASO # 0.0 10^3/uL (0.0-0.2); BASO % 0.5 % (0.0-1.0); EOS # 0.3 10^3/uL (0.0-0.5); EOS % 5.0 % (0.0-3.0); LYMPH # 1.5 10^3/uL (1.5-5.0); LYMPH % 23.5 % (24.0-44.0); MONO # 0.8 10^3/uL (0.0-0.8); MONO % 13.1 % (2.0-8.0); NEUTROPHILS # 3.7 10^3/uL (1.5-8.5); NEUTROPHILS % 57.6 % (36.0-66.0); PLATELET COUNT, AUTOMATED 263 10^3/uL (150-450)
[2025-04-01 15:36] LABS: CK-MB VALUE MASS 1.1 NG/ML (<3.6)
[2025-04-01 15:41] LABS: CPK CREATINE PHOSPHOKINASE 80 U/L (46-171); MB/CK RELATIVE INDEX 1.37 (< OR =4)
[2025-04-01 15:42] LABS: ALT/SGPT 10 U/L (7.0-40); AST/SGOT 15 U/L (<34); CALCIUM LEVEL 8.4 MG/DL (8.5-10.1); CARBON DIOXIDE LEVEL 25 MMOL/L (20-31); CHLORIDE LEVEL 103 MMOL/L (98-107); CREATININE FOR GFR 0.82 MG/DL (0.70-1.30); GLOMERULAR FILTRATION RATE > 90.0 (>60); IRON (FE) 14 UG/DL (65-175); MAGNESIUM LEVEL 1.9 MG/DL (1.8-2.4); PERCENT SATURATION 3.9 % (19.7-50.0); POTASSIUM SERUM 4.2 MMOL/L (3.5-5.1); SODIUM LEVEL 139 MMOL/L (136-145)
[2025-04-01 15:44] LABS: VITAMIN B12 LEVEL 349 PG/ML (211-911)
[2025-04-01] MEDS: LOSARTAN 50 MG TABLET PO ONE (15:45)
[2025-04-01] MEDS ORDERED: ISOVUE-370 76% 100 ML VIAL As Ordered ONE (16:25)
[2025-04-01] MEDS: hydrALAZINE 20 MG/ML 1 ML VIAL IV ONE (16:54)
[2025-04-01] MEDS: LABETALOL 100 MG/20 ML VIAL IV ONE (18:16)
[2025-04-01] MEDS: ACETAMINOPHEN 325 MG TAB PO ONE (18:32)
[2025-04-01] MEDS ORDERED: HOME MED LIST COMPLETE! XX SCH (19:20)
[2025-04-01] MEDS ORDERED: MORPHINE 4 MG/ML 1 ML VIAL IV PRN (20:35)
[2025-04-01] MEDS ORDERED: MOM 30 ML SUSPENSION UDC PO PRN (21:00)
[2025-04-01] MEDS ORDERED: ACETAMINOPHEN 325 MG TAB PO PRN (21:00)
[2025-04-01] MEDS ORDERED: MAALOX 30 ML SUSP *UDC PO PRN (21:00)
[2025-04-01] MEDS: ONDANSETRON 4MG/2ML VIAL IV ONE (21:25)
[2025-04-01] MEDS: niCARdipine IV 40 MG in IV 1 EA IV SCH (21:26)
[2025-04-01] MEDS: DOCUSATE SODIUM 100 MG CAPSULE PO SCH (21:40)
[2025-04-02] MEDS ORDERED: hydrALAZINE 20 MG/ML 1 ML VIAL IV PRN (05:40)
[2025-04-02 06:06] LABS: BASO # 0.0 10^3/uL (0.0-0.2); BASO % 0.6 % (0.0-1.0); EOS # 0.3 10^3/uL (0.0-0.5); EOS % 3.5 % (0.0-3.0); LYMPH # 1.1 10^3/uL (1.5-5.0); LYMPH % 15.9 % (24.0-44.0); MONO # 0.7 10^3/uL (0.0-0.8); MONO % 10.3 % (2.0-8.0); NEUTROPHILS # 4.9 10^3/uL (1.5-8.5); NEUTROPHILS % 69.4 % (36.0-66.0); PLATELET COUNT, AUTOMATED 304 10^3/uL (150-450)
[2025-04-02 06:51] LABS: ALT/SGPT 12 U/L (7.0-40); AST/SGOT 12 U/L (<34); CALCIUM LEVEL 9.1 MG/DL (8.5-10.1); CARBON DIOXIDE LEVEL 27 MMOL/L (20-31); CHLORIDE LEVEL 100 MMOL/L (98-107); CREATININE FOR GFR 0.82 MG/DL (0.70-1.30); GLOMERULAR FILTRATION RATE > 90.0 (>60); MAGNESIUM LEVEL 2.0 MG/DL (1.8-2.4); POTASSIUM SERUM 4.5 MMOL/L (3.5-5.1); SODIUM LEVEL 137 MMOL/L (136-145)
[2025-04-02] MEDS: MULTIVITAMINS/MINERALS THERAP 1 TAB PO SCH (07:27)
[2025-04-02] MEDS: THIAMINE 100 MG TAB PO SCH (07:27)
[2025-04-02] MEDS: FOLIC ACID 1 MG TAB PO SCH (07:27)
[2025-04-02] MEDS: PANTOPRAZOLE 40MG TAB PO SCH (07:27)
[2025-04-02] MEDS: amLODIPine 5 MG TAB PO SCH (07:27)
[2025-04-02] MEDS: LOSARTAN 50 MG TABLET PO SCH (07:27)
[2025-04-02] MEDS: IRON POLYSAC 150 MG CAP PO SCH (07:30)
[2025-04-02] MEDS ORDERED: amLODIPine 5 MG TAB PO SCH (09:00)
[2025-04-02 10:43] VITALS: TEMP 97.1
[2025-04-02] MEDS ORDERED: LOSA-528 PO (11:42)
[2025-04-02] MEDS ORDERED: AMLO1TAB25 PO ×2 (11:42→14:55)
[2025-04-02] MEDS ORDERED: NIFE15CA PO (11:42)
[2025-04-02] MEDS ORDERED: THERTAB19 PO (11:42)
[2025-04-02] MEDS ORDERED: THIA100TA PO (11:42)
[2025-04-02] MEDS ORDERED: FOLI1TAB11 PO (11:42)
[2025-04-02] MEDS ORDERED: LOSA100T46 PO ×2 (11:47→14:55)
[2025-04-02] MEDS ORDERED: **hydrALAZINE** 10 MG TAB PO SCH ×2 (12:00)
[2025-04-02 12:03] VITALS: BP 162/101
[2025-04-02] MEDS: **hydrALAZINE HCL** 25 MG TAB PO SCH (12:03)
[2025-04-02] MEDS ORDERED: HOME MED LIST COMPLETE! XX SCH (14:25)
[2025-04-02 14:32] VITALS: O2SAT 97
[2025-04-02 14:48] VITALS: BP 158/88
[2025-04-02] MEDS ORDERED: BLOOKIT XX (14:55)
[2025-04-02] MEDS ORDERED: HYDR50TA47 PO (14:55)
== END 2025-04-02 15:32 | disposition home or self-care (01) ==
LOC: M ED 14:25 → M ED INP 20:58
PROVIDERS: ADMIT Student in an Organized Health Care Education/Training Program; ATTEND Student in an Organized Health Care Education/Training Program
DX: I16.1 Hypertensive emergency (principal); R07.9 Chest pain, unspecified; I10 Essential (primary) hypertension; D50.9 Iron deficiency anemia, unspecified; K44.9 Diaphragmatic hernia without obstruction or gangrene; F10.14 Alcohol abuse with alcohol-induced mood disorder; Z82.41 Family history of sudden cardiac death; Z79.899 Other long term (current) drug therapy
CPT/HCPCS: 36415; 71045; 71275; 80047; 80048; 80053; 80076; 82550; 82553; 82607; 82728; 82746; 83550; 83690; 83735; 84484; 85025; 93005; 93041; 93306; 94760; 96365; 96366; 96375; 99285; J0360; J1920; J2405; Q9967

== ENCOUNTER → 2025-04-11 | Outpatient (CLI) | payer SELFPAY ==
[~2025-04-11] MED LIST changes: +AMLO1TAB25 PO; +BLOOKIT XX; +FOLI1TAB11 PO; +HYDR50TA47 PO; +LOSA-528 PO; +LOSA100T46 PO; +NIFE15CA PO; +THERTAB19 PO; +THIA100TA PO
== END ==
LOC: M OUTALCOH 14:54
PROVIDERS: ATTEND Psychiatry & Neurology Psychiatry
DX: F10.10 Alcohol abuse, uncomplicated (principal)

== ENCOUNTER 2025-05-05 15:00 | Outpatient (RCR) | payer SELFPAY | END 2025-05-11 | LOC: M OUTALCOH 15:00 | PROVIDERS: ATTEND Psychiatry & Neurology Psychiatry | DX: F10.10 Alcohol abuse, uncomplicated (principal) ==

== ENCOUNTER 2025-06-09 14:51 | Outpatient (RCR) | payer SELFPAY | END 2025-06-11 | LOC: M OUTALCOH 14:51 | PROVIDERS: ATTEND Psychiatry & Neurology Psychiatry | DX: F10.10 Alcohol abuse, uncomplicated (principal) ==